=== PATIENT | male | born 1940 | race Caucasian/White ===

== ENCOUNTER → 2017-07-07 | Outpatient (CLI) | payer OTHER ==
[~2017-07-07] MED LIST: ASCO500 PO; ASPI81EC PO; DOXA1 PO; DOXA2 PO; HYDACE5 PO; HYDRA25 PO; HYDROCHLOROTHIAZIDE PO; LISI20 PO; LISINOPRIL PO; MULVITMINF PO; OXYACE5T PO
== END ==
LOC: PLD 07:10
DX: R31.0 Gross hematuria (principal)
CPT/HCPCS: 88108

== ENCOUNTER 2017-08-18 16:14 | Emergency (ER) | payer OTHER | END 2017-08-18 16:33 | disposition left against medical advice (07) | LOC: ER 16:14 | DX: Z53.21 Procedure and treatment not carried out due to patient leaving prior to being seen by health care provider (principal) ==

== ENCOUNTER 2017-12-20 06:26 | Emergency (ER) | payer OTHER ==
[~2017-12-20] VITALS: Ht 177.8 cm; Wt 65.8 kg
== END 2017-12-20 07:09 | disposition home or self-care (01) ==
LOC: ER 06:26
DX: R33.9 Retention of urine, unspecified (principal); I10 Essential (primary) hypertension; Z85.05 Personal history of malignant neoplasm of liver; Z79.899 Other long term (current) drug therapy; Z79.891 Long term (current) use of opiate analgesic
CPT/HCPCS: 51798; 99283